=== PATIENT | female | born 1985 | race Caucasian/White ===

== ENCOUNTER 2017-09-20 11:10 | Inpatient (IN) | payer OTHER ==
[2017-09-20] MEDS ORDERED: ALPRAZOLAM 0.5 MG TAB PO (16:00)
[2017-09-20] MEDS ORDERED: DOCUSATE SODIUM 100 MG CAP PO (16:30)
[2017-09-20] MEDS ORDERED: BISACODYL 10 MG SUPP PR (16:30)
[2017-09-20] MEDS ORDERED: MAGNESIUM HYDROXIDE 30ML CUP PO (16:30)
[2017-09-20] MEDS ORDERED: HYDROCODONE/APAP (5/325) TAB PO ×2 (16:30)
[2017-09-20] MEDS ORDERED: NACL 0.9% 3 ML SYG IV (16:30)
[2017-09-20] MEDS ORDERED: ONDANSETRON 4 MG INJ IV (16:30)
[2017-09-20] MEDS ORDERED: morphine 2 MG INJ IV (16:30)
[2017-09-20] MEDS ORDERED: ACETAMINOPHEN 650 MG SUPP PR (16:30)
[2017-09-20] MEDS ORDERED: ZOLPIDEM 5 MG TAB PO (17:00)
[2017-09-20] MEDS ORDERED: BUPROPION (SR) 150 MG TAB PO (21:00)
[2017-09-21 05:41] LABS: ALANINE AMINOTRANSFERASE 23 IU/L (13-69); ALBUMIN 4.9 g/dl (3.3-4.9); ALBUMIN/GLOBULIN RATIO 1.53; ALKALINE PHOSPHATASE 45 IU/L (42-121); ANION GAP 16 (8-16); ASPARTATE AMINO TRANSFERASE 16 IU/L (15-46); BILIRUBIN,INDIRECT 0.5 mg/dl (0-1.1); BILIRUBIN,TOTAL 0.5 mg/dl (0.2-1.3); BLOOD UREA NITROGEN 13 mg/dl (7-20); CARBON DIOXIDE 25 mmol/L (21-31); CHLORIDE 106 mmol/L (97-110); CHOL/HDL RATIO 2.9 RATIO; CHOLESTEROL 194 mg/dl (100-200); CREATININE 0.64 mg/dl (0.44-1.00); GLUCOSE 122 mg/dl (70-220); HDL CHOLESTEROL 65 mg/dl (34-82); LDL CHOLESTEROL,CALCULATED 121 mg/dl; MAGNESIUM 2.3 mg/dl (1.7-2.5); PHOSPHORUS 4.4 mg/dl (2.5-4.9); POTASSIUM 4.3 mmol/L (3.5-5.1); SODIUM 143 mmol/L (135-144); TOTAL PROTEIN 8.1 g/dl (6.1-8.1); TRIGLYCERIDES 41 mg/dl (0-149)
[2017-09-21 05:43] LABS: HEMOGLOBIN A1C 4.9 % (0-5.9)
[2017-09-21] MEDS: PANTOPRAZOLE 40 MG INJ IV (05:47)
[2017-09-21 06:31] LABS: CALCIUM 9.9 mg/dl (8.4-10.2)
[2017-09-21 07:27] LABS: FREE THYROXINE INDEX (Calc) 3.14 ug/ml (0.65-3.89)
[2017-09-21 07:42] LABS: T3 UPTAKE 34.1 % (23.5-40.5); T4 (THYROXINE) 9.2 ug/dl (5.5-11.0)
[2017-09-21] MEDS: BUPROPION 75 MG TAB PO ×2 (08:55→14:25)
[2017-09-21] MEDS: METHYLPRED. NA SUCC 1,000 MG in DEXTROSE 5% 50 ML IVPB (14:26)
[2017-09-21] MEDS: ACETAMINOPHEN 325 MG TAB PO (14:26)
[2017-09-22 05:36] LABS: ADD MAN DIFF? NO
[2017-09-22 05:38] LABS: WHITE BLOOD COUNT 17.1 10^3/ul (4.8-10.8)
[2017-09-22 05:38] LABS: BASOPHILS % 0.1 % (0.0-2.0); HEMATOCRIT 37.8 % (37.0-47.0); LYMPHOCYTES # 0.8 10^3/ul (0.8-2.9); LYMPHOCYTES % 4.9 % (15.0-51.0); MEAN CORPUSCULAR HEMOGLOBIN 31.8 pg (29.0-33.0); MEAN CORPUSCULAR HGB CONC 34.4 g/dl (32.0-37.0); MEAN CORPUSCULAR VOLUME 92.4 fl (82.0-101.0); MEAN PLATELET VOLUME 10.8 fl (7.4-10.4); MONOCYTE # 0.5 10^3/ul (0.3-0.9); MONOCYTES % 2.9 % (0.0-11.0); NEUTROPHIL # 15.6 10^3/ul (1.6-7.5); NEUTROPHILS % 91.6 % (39.0-77.0); PLATELET COUNT 280 10^3/UL (140-415); RED BLOOD COUNT 4.09 10^6/ul (4.20-5.40); RED CELL DISTRIBUTION WIDTH 12.4 % (11.5-14.5)
[2017-09-22] MEDS: PANTOPRAZOLE (EC) 40 MG TAB PO (05:48)
[2017-09-22 06:05] LABS: ANION GAP 15 (8-16); BLOOD UREA NITROGEN 18 mg/dl (7-20); CALCIUM 9.1 mg/dl (8.4-10.2); CARBON DIOXIDE 25 mmol/L (21-31); CHLORIDE 105 mmol/L (97-110); CREATININE 0.62 mg/dl (0.44-1.00); GLUCOSE 139 mg/dl (70-220); POTASSIUM 4.2 mmol/L (3.5-5.1); SODIUM 141 mmol/L (135-144)
[2017-09-22] MEDS: BUPROPION 75 MG TAB PO ×2 (09:21→16:07)
[2017-09-22] MEDS: ACETAMINOPHEN 325 MG TAB PO (09:21)
[2017-09-22] MEDS: METHYLPRED. NA SUCC 1,000 MG in DEXTROSE 5% 50 ML IVPB (09:22)
[2017-09-22 11:32] LABS: INR 1.03; PROTIME 13.6 Sec (11.9-14.9); PT RATIO 1.1
[2017-09-22 11:33] LABS: PARTIAL THROMBOPLASTIN TIME 22.9 Sec (25.0-35.0)
[2017-09-22] MEDS: LORAZEPAM 2 MG INJ IV ×2 (13:43→16:07)
[2017-09-22 16:10] LABS: CSF RBC 0 /uL (0-0); CSF WBC 6 /cmm (0-10)
[2017-09-22 16:12] LABS: TOTAL PROTEIN,CSF 30 mg/dl (12-60)
[2017-09-22 16:12] LABS: GLUCOSE,CSF 89 mg/dl (50-80)
[2017-09-22 16:16] LABS: CSF CLARITY CLEAR; CSF#TUBE COUNT TUBE#4; CSF#TUBES REC'D 4
[2017-09-22 16:16] LABS: CSF COLOR COLORLESS
[2017-09-23 05:44] LABS: ADD MAN DIFF? NO
[2017-09-23] MEDS: PANTOPRAZOLE (EC) 40 MG TAB PO (05:49)
[2017-09-23 06:00] LABS: WHITE BLOOD COUNT 15.9 10^3/ul (4.8-10.8)
[2017-09-23 06:00] LABS: BASOPHILS % 0.1 % (0.0-2.0); HEMATOCRIT 36.5 % (37.0-47.0); HEMOGLOBIN 12.5 g/dl (12.0-16.0); LYMPHOCYTES # 1.3 10^3/ul (0.8-2.9); LYMPHOCYTES % 8.4 % (15.0-51.0); MEAN CORPUSCULAR HEMOGLOBIN 31.9 pg (29.0-33.0); MEAN CORPUSCULAR HGB CONC 34.2 g/dl (32.0-37.0); MEAN CORPUSCULAR VOLUME 93.1 fl (82.0-101.0); MEAN PLATELET VOLUME 10.7 fl (7.4-10.4); MONOCYTE # 0.9 10^3/ul (0.3-0.9); MONOCYTES % 5.4 % (0.0-11.0); NEUTROPHIL # 13.6 10^3/ul (1.6-7.5); NEUTROPHILS % 85.6 % (39.0-77.0); PLATELET COUNT 280 10^3/UL (140-415); RED BLOOD COUNT 3.92 10^6/ul (4.20-5.40); RED CELL DISTRIBUTION WIDTH 12.3 % (11.5-14.5)
[2017-09-23 06:22] LABS: ALANINE AMINOTRANSFERASE 28 IU/L (13-69); ALBUMIN/GLOBULIN RATIO 1.42; ALKALINE PHOSPHATASE 38 IU/L (42-121); ANION GAP 14 (8-16); ASPARTATE AMINO TRANSFERASE 12 IU/L (15-46); BILIRUBIN,INDIRECT 0.3 mg/dl (0-1.1); BILIRUBIN,TOTAL 0.3 mg/dl (0.2-1.3); BLOOD UREA NITROGEN 14 mg/dl (7-20); CALCIUM 9.2 mg/dl (8.4-10.2); CARBON DIOXIDE 27 mmol/L (21-31); CHLORIDE 104 mmol/L (97-110); CREATININE 0.63 mg/dl (0.44-1.00); GLUCOSE 123 mg/dl (70-220); POTASSIUM 3.7 mmol/L (3.5-5.1); SODIUM 141 mmol/L (135-144); TOTAL PROTEIN 6.8 g/dl (6.1-8.1)
[2017-09-23 06:41] LABS: MAGNESIUM 2.3 mg/dl (1.7-2.5)
[2017-09-23] MEDS: BUPROPION 75 MG TAB PO (09:06)
== END 2017-09-23 11:46 | disposition home or self-care (01) | DRG 60 ==
LOC: MS1 11:10
PROC: 009U3ZX Drainage of Spinal Canal, Percutaneous Approach, Diagnostic (ICD-10-PCS; principal; 2017-09-22)
PROC: B01BZZZ Fluoroscopy of Spinal Cord (ICD-10-PCS; 2017-09-22)
DX: G35 Multiple sclerosis (principal); F32.9 Major depressive disorder, single episode, unspecified; F41.9 Anxiety disorder, unspecified; F17.200 Nicotine dependence, unspecified, uncomplicated; Z82.0 Family history of epilepsy and other diseases of the nervous system
CPT/HCPCS: 72156; 72157; 72195; 80048; 80053; 80061; 82945; 83036; 83735; 84100; 84157; 84436; 84443; 84479; 84703; 85025; 85610; 85730; 89051; 93880